=== PATIENT | male | born 1975 | race Caucasian/White ===

== ENCOUNTER 2024-02-18 14:52 | Outpatient (CLI) | payer BC ==
[2024-02-18 15:28] LABS: #Basophils 0.08 10x3/uL (0.0-0.2); %Basophils 0.7 % (0.0-1.0); %Eosinophils 1.3 % (0.0-10.0); %Lymphocytes 30.7 % (21.0-51.0); %Monocytes 6.2 % (0.0-10.0); %Neutrophils 60.8 % (42.0-75.0); Hematocrit 44.7 % (42.0-52.0); Hemoglobin 15.3 g/dL (14.0-18.0); Mean Corpuscular HGB CONC 34.2 g/dL (32.0-36.0); Mean Corpuscular Hemoglobin 31.5 pg (27.0-31.0); Mean Corpuscular Volume 92.2 fL (78.0-98.0); Mean Platelet Volume 10.1 fL (7.4-10.4); Platelet Count 265 10x3/uL (130-400); RBC Distribution Width 12.9 % (11.5-14.5); Red Blood Cell (RBC) Count 4.85 mill/uL (4.70-6.10)
[2024-02-18 15:54] LABS: ALT (SGPT) 30 U/L (8-55); AST (SGOT) 22 U/L (5-34); Albumin 4.4 g/dL (3.5-5.0); Alkaline Phosphatase 68 U/L (40-110); Anion Gap 12 mmol/L (10-20); BUN (Urea Nitrogen) 10 mg/dL (8.9-20.6); Bilirubin, Total 0.5 mg/dL (0.2-1.2); Calc. Creatinine Clearance 0 mL/min (70-130); Calcium 9.6 mg/dL (7.8-10.44); Carbon Dioxide 24 mmol/L (22-29); Chloride 108 mmol/L (98-107); Estimated GFR 84; Globulin 3.6 g/dL (2.4-3.5); Glucose 88 mg/dL (70-105); Potassium 4.2 mmol/L (3.5-5.1); Sodium 140 mmol/L (136-145)
== END 2024-02-18 14:53 | disposition home or self-care (01) ==
LOC: LABBT 14:52
PROVIDERS: ATTEND Surgery
DX: Z01.812 Encounter for preprocedural laboratory examination (principal); K80.20 Calculus of gallbladder without cholecystitis without obstruction
CPT/HCPCS: 80053; 85025

== ENCOUNTER 2024-02-21 06:08 | Day surgery (SDC) | payer BC ==
[2024-02-18 15:04] VITALS: BMI 26.6
[2024-02-21] MEDS ORDERED: Indocyanine Green 25 MG/10 ML VIAL ONE (06:25)
[2024-02-21] MEDS ORDERED: EPINEPHrine 1 MG/ML VIAL ONE (06:25)
[2024-02-21] MEDS ORDERED: Bupivacaine 0.25% HCL 30 ML VIAL ONE (06:25)
[2024-02-21] MEDS ORDERED: Lidocaine 1% MPF 2 ML VIAL ONE (06:51)
[2024-02-21] MEDS ORDERED: CEFAZOLIN 2 GM VIAL ONE (06:51)
[2024-02-21] MEDS ORDERED: Rocuronium Bromide 10 MG/ML (10ML VIAL) ONE (06:52)
[2024-02-21] MEDS ORDERED: PROPOFOL 20 ML ONE ×2 (06:52→08:00)
[2024-02-21] MEDS ORDERED: Fentanyl 250 MCG/5 ML VIAL ONE (06:52)
[2024-02-21] MEDS ORDERED: Lidocaine 2% PF 5 ML VIAL ONE (06:52)
[2024-02-21] MEDS ORDERED: Midazolam HCl 2 mg/2 ml Vial ONE (06:52)
[2024-02-21] MEDS ORDERED: Dexamethasone 4 mg/ml Vial ONE (07:47)
[2024-02-21] MEDS ORDERED: Ondansetron PF 4 MG/2 ML Vial ONE (07:47)
[2024-02-21] MEDS ORDERED: Ketorolac Tromethamine 30 MG (1 mL) VIAL ONE (07:47)
[2024-02-21] MEDS ORDERED: PHENYLEPHRINE-NS 100 MCG/ML 10 ML SYRINGE ONE (07:59)
[2024-02-21] MEDS ORDERED: SUGAMMADEX SODIUM 200 MG/2 ML VIAL ONE (07:59)
[2024-02-21] MEDS ORDERED: Meperidine HCl/PF 25 MG (1 mL) VIAL ONE (09:05)
== END 2024-02-21 10:45 | disposition home or self-care (01) ==
LOC: SDC 06:08
PROVIDERS: ATTEND Surgery
PROC: 0FT44ZZ Resection of Gallbladder, Percutaneous Endoscopic Approach (ICD-10-PCS; principal; 2024-02-21)
DX: K80.10 Calculus of gallbladder with chronic cholecystitis without obstruction (principal); K82.8 Other specified diseases of gallbladder; H91.93 Unspecified hearing loss, bilateral; F17.200 Nicotine dependence, unspecified, uncomplicated; Z90.89 Acquired absence of other organs; Z98.52 Vasectomy status; Z96.22 Myringotomy tube(s) status
CPT/HCPCS: 88304; C1889; J0171; J0665; J1100; J1885; J2175; J2250; J2405; J2704; J3010; S2900